=== PATIENT | male | born 1955 | race Caucasian/White ===

== ENCOUNTER 2018-10-27 23:54 | Emergency (ER) | payer OTHER ==
[~2018-10-27] VITALS: Ht 170.2 cm; Wt 88.0 kg
[2018-10-28] MEDS ORDERED: NORFLEX100MG PO (02:02)
[2018-10-28] MEDS ORDERED: MOBIC15 MG PO (02:02)
== END 2018-10-28 02:13 | disposition home or self-care (01) ==
LOC: ER 23:54
DX: S13.4XXA Sprain of ligaments of cervical spine, initial encounter (principal); V49.9XXA Car occupant (driver) (passenger) injured in unspecified traffic accident, initial encounter; Y93.89 Activity, other specified; Y92.488 Other paved roadways as the place of occurrence of the external cause; Y99.8 Other external cause status

== ENCOUNTER 2018-12-11 03:26 | Emergency (ER) | payer OTHER ==
[~2018-12-11] VITALS: Ht 170.2 cm; Wt 83.9 kg
[~2018-12-11 03:26] MED LIST: MOBIC15 MG PO; NORFLEX100MG PO
[2018-12-11] MEDS ORDERED: XOPENEX0.63 MG/3 IH (07:53)
[2018-12-11] MEDS ORDERED: QVAR REDIHALE10.6 G1 IH (07:53)
[2018-12-11] MEDS ORDERED: ZYNCOF 20-400120 ML PO (07:53)
== END 2018-12-11 08:05 ==
LOC: ER 03:26
DX: M54.89 Other dorsalgia (principal); R09.81 Nasal congestion; R05 Cough

== ENCOUNTER 2020-10-30 08:30 | Emergency (ER) | payer OTHER ==
[~2020-10-30] VITALS: Ht 170.2 cm; Wt 89.8 kg
[~2020-10-30 08:30] MED LIST changes: +QVAR REDIHALE10.6 G1 IH; +XOPENEX0.63 MG/3 IH; +ZYNCOF 20-400120 ML PO
[2020-10-30] MEDS ORDERED: CLINDESSE5 GM PO (08:44)
[2020-10-30] MEDS ORDERED: PEPCID AC20 MG PO (09:36)
[2020-10-30] MEDS ORDERED: ULTRACET PO (09:36)
== END 2020-10-30 09:47 | disposition home or self-care (01) ==
LOC: ER 08:30
DX: K05.00 Acute gingivitis, plaque induced (principal)

== ENCOUNTER 2022-01-06 09:59 | Emergency (ER) | payer OTHER ==
[~2022-01-06] VITALS: Ht 170.2 cm; Wt 83.9 kg
[~2022-01-06 09:59] MED LIST changes: +CLINDESSE5 GM PO; +PEPCID AC20 MG PO; +ULTRACET PO
== END 2022-01-06 13:14 | disposition home or self-care (01) ==
LOC: ER 09:59
DX: J32.9 Chronic sinusitis, unspecified (principal); Z88.2 Allergy status to sulfonamides; Z88.0 Allergy status to penicillin; Z88.6 Allergy status to analgesic agent; Z20.822 Contact with and (suspected) exposure to COVID-19

== ENCOUNTER 2022-08-07 21:14 | Emergency (ER) | payer OTHER ==
[~2022-08-07] VITALS: Ht 170.2 cm; Wt 90.7 kg
[2022-08-08] MEDS ORDERED: ZITHROMAX500 MG PO (05:14)
[2022-08-08] MEDS ORDERED: ZYNCOF 20-400120 ML PO (05:14)
[2022-08-08] MEDS ORDERED: ALBUTEROL2.5 MG/3 M IH (05:14)
== END 2022-08-08 05:52 ==
LOC: ER 21:14
DX: J40 Bronchitis, not specified as acute or chronic (principal); Z88.0 Allergy status to penicillin; Z88.2 Allergy status to sulfonamides; Z20.822 Contact with and (suspected) exposure to COVID-19